=== PATIENT | male | born 1965 | race African-American/Black ===

== ENCOUNTER 2022-09-03 15:58 | Inpatient (IN) | payer OTHER, SELFPAY ==
[2022-09-03] VITALS (44 sets, daily range): BP systolic 80–120; BP diastolic 45–85; PULSE 60–96; RESP 14–44; TEMP 36.4–37.1; O2SAT 86–100
--- NOTE | ~2022-09-03 | CT_ITS ---
EXAMINATION: CT abdomen pelvis w con DATE: 09/03/2022 17:34 INDICATION: Abdominal pain TECHNIQUE: Computed tomography (CT) of the abdomen and pelvis was performed with 100 mL Omnipaque-350 intravenous contrast. Automated exposure control and iterative reconstruction technique were employe d. The dose-length product was 1296.59 mGy-cm. COMPARISON: None FINDINGS: Moderate-sized bilateral posterior layering bilateral pleural effusions with dependent compressive at electasis in the bilateral lower lobes and lingula. There are patchy airspace opacities suspicious fo r aspiration or pneumonia in the noncollapsed portions of the left lower lobe and lingula. Heart size is normal. Atherosclerotic coronary artery calcific lesion. No pericardial effusion. Dual-lead cardi ac pacemaker with lead tips in the right atrium and right ventricle. Aortic valve calcific location. Visualized thoracic aorta is normal in caliber with no dissection. Heterogeneous enhancement of the liver without mag appearance suggesting hepatic venous congestion. H epatic calcific lesions consistent with old granulomatous disease. Gallbladder, spleen, pancreas and bilateral adrenal glands are normal. Multiple bilateral low-attenuation renal cysts the largest on th e left measuring 3 cm . 5 similar ball of stool at the rectum. No evident pleural thickening or obstr uction. Normal appendix. Bladder is normal. The uterus is not identified and has likely been surgical ly resected. Small amount of ascites throughout the abdomen and pelvis. Extensive body wall, mediasti nal, mesenteric and retroperitoneal edema. Mild scattered degenerative skeletal changes in the spine and pelvis. IMPRESSION: 1. Anasarca with extensive soft tissue edema throughout the chest, abdomen, pelvis and upper thighs, moderate-sized bilateral pleural effusions and small amount of ascites. 2. Patchy airspace opacity in the left lower lobe and lingula consistent with pneumonia. Reviewed, dictated and finalized at location A. [facility] MINISTER IMPRESSION: 1. Anasarca with extensive soft tissue edema throughout the chest, abdomen, pel vis and upper thighs, moderate-sized bilateral pleural effusions and small amou nt of ascites. 2. Patchy airspace opacity in the left lower lobe and lingula consistent with p neumonia.
--- NOTE | 2022-09-03 16:01 | ECG_ITS ---
Measurements Intervals [place] Rate: 71 P: 162 SC: 255 QRS: 238 QRSD: 84 T: 92 QT: 263 QTc: 286 Interpretive Statements NSR/POSSIBLE ELECTRONIC ATRIAL AND VENTRICULAR PACEMAKER LOW QRS VOLTAGE [QRS DEFLECTION < 0.5/1.0 mV IN LIMB/CHEST LEADS] POSSIBLE OLD INFERIOR AND ANTEROLATERAL TX'S VERSUS VENTRICULAR PACING NO PREVIOUS ECG AVAILABLE FOR COMPARISON Electronically Signed On 09-04-2022 8:36:38 [employer]ATIONIST by Vanessa Murphy M.D.
[2022-09-03 16:54] LABS: Hematocrit 34.8 % (42.0-52.0); Hemoglobin 10.7 g/dL (14.0-18.0); Mean Corpuscular HGB Conc 30.7 g/dl (32-36); Mean Corpuscular Hemoglobin 24.9 pg (26-34); Mean Corpuscular Volume 81.1 fl (80-100); Mean Platelet Volume 8.9 fl (7.4-10.4); Platelet Count Result 356 k/mm3 (150-375); Red Blood Count 4.29 M/mm3 (4.6-6.20); Red Cell Distribution Width 19.5 % (11.5-14.5); White Blood Count 17.4 K/mm3 (4.5-10.0)
[2022-09-03 17:06] LABS: INR 1.8; Prothrombin Time 20.5 Seconds (11.1-14.7)
[2022-09-03 17:16] LABS: Alanine Aminotransferase 18 U/L (6-50); Albumin Level 2.3 g/dL (3.5-5.1); Alkaline Phosphatase 90 U/L (38-126); Anion Gap 3 mmol/L (8-16); Aspartate Amino Transferase 26 U/L (17-59); Bilirubin,Total 0.5 mg/dL (0.2-1.3); Blood Urea Nitrogen 46 mg/dL (9-20); Calcium 7.5 mg/dL (8.4-10.2); Carbon Dioxide 28 mmol/L (22-30); Chloride 104 mmol/L (98-107); Estimated CRCL calculation 47 ml/min; Estimated Glomerular Filt Rate 51; Glucose 87 mg/dL (65-110); Lipase 66 U/L (23-300); Potassium 4.3 mmol/L (3.4-5.0); Sodium 135 mmol/L (137-145)
[2022-09-03 17:17] LABS: Lactic Acid Reflex 1.8 mmol/L (0.7-2.0)
[2022-09-03] MEDS: SODIUM CHLORIDE 0.9% IV 1,000 ML 75 ML IV CONT (17:18)
[2022-09-03 17:31] LABS: Band Neutrophils Percent 6 % (0-6); Lymphocytes Absolute Manual 0.52 K/mm3 (1.1-4.5); Monocytes Absolute Manual 1.04 K/mm3 (0.1-0.90); Monocytes Percent Manual 6 % (3-9); Neutrophils Absolute Manual 15.83 K/mm3 (1.3-6.7); Neutrophils Percent Manual 85 % (46-73); Total Cells Counted 100
[2022-09-03 17:32] LABS: Hypochromasia 1+ (NORMAL); Platelet Estimate Adequate (Adequate); Schistocytes None Seen (NORMAL)
[2022-09-03 17:33] LABS: Anisocytosis 3+ (NORMAL); Troponin I 0.012 ng/mL (0.000-0.034)
--- NOTE | 2022-09-03 17:52 | PC.NURSE ---
Pt had a sudden onset of SOB. Pt wanting to sit up and pt is very anxious. Pt O2 is 98% on room air at this time, lung sounds are very crackled. Pt repositioned to sit up.
--- NOTE | 2022-09-03 19:10 | ED.GENADULT ---
HPI - General Adult General Chief complaint: Nausea/Vomiting/Diarrhea Stated complaint: vomiting blood Time Seen by Provider: 09/03/22 16:01 Source: patient and family Mode of arrival: EMS Limitations: clinical condition History of Present Illness HPI narrative: 57-year-old with a history of CHF, type 2 diabetes, CKD paroxysmal atrial fibrillation on apixaban, alcoholic cirrhosis, CVA, sick sinus syndrome with s/p pacemaker, hemiplegia on the right, esophageal varices without bleeding, hypertension was brought in from the alf with complaints of vomiting blood earlier this morning. Patient states that he threw up but required a couple of blood. He denies any abdominal pain or chest pain. Patient states that he has never thrown up blood in the past. Onset (ago): day(s) (1) Relieving factors: none Exacerbating factors: none Associated symptoms: denies other symptoms Treatments prior to arrival: none Related Data Allergies Allergy/AdvReac Type Severity Reaction Status Date / Time No Known Allergies Allergy Verified 09/03/22 17:04 Review of Systems Review of Systems: All systems reviewed & are unremarkable except as noted in HPI and below Constitutional: Constitutional: Reports no additional constitutional complaints Eyes: Eyes: Reports no additional eye complaints ENT: Reports system reviewed and no additional complaints, except as documented Cardiovascular: Cardiovascular: Reports no additional cardiovascular complaints Respiratory: Respiratory: Reports no additional respiratory complaints Gastrointestinal: Gastrointestinal: Reports as per HPI Musculoskeletal: Musculoskeletal: Reports no additional musculoskeletal complaints Neurologic: Reports system reviewed and no additional complaints, except as documented Exam Narrative: GENERAL: Well-appearing, well-nourished, and in no acute distress. Has expressive aphasia HEAD: Normocephalic, atraumatic. EYES: PERRLA and EOMI. NECK: Supple. CHEST: Clear to auscultation. No respiratory distress. HEART: Regular rate and rhythm. No murmur heard. Normal peripheral pulses. ABDOMEN: Soft, nontender, nondistended, normal active bowel sounds. EXTREMITIES: Normal range of motion. No edema. SKIN: Warm, dry, no rash. NEURO: No focal deficits. Alert and oriented x3. Has residual hemiplegia on the right PSYCH: Normal mood and affect. Course Course Emergency Course: 57-year-old with a history of cirrhosis liver known history of esophageal varices without bleeding now presents with history of vomiting blood earlier at the alf since upon arrival to the ER patient had no further episodes. He is hemodynamically stable , his labs and CT of the abdomen were unremarkable discussed with Dr. Barrera will consulted patient. Vital Signs Vital signs: Vital Signs Temperature 37.1 C 09/03/22 15:58 Pulse Rate 74 09/03/22 15:58 Respiratory Rate 14 09/03/22 15:58 Blood Pressure 108/62 09/03/22 15:58 Pulse Oximetry 99 09/03/22 15:58 Oxygen Delivery Room Air 09/03/22 15:58 Temperature 37.1 C 09/03/22 15:58 Pulse Rate 60 09/03/22 19:07 Respiratory Rate 30 H 09/03/22 19:07 Blood Pressure 110/59 L 09/03/22 19:07 Pulse Oximetry 100 09/03/22 19:07 Oxygen Delivery Nasal Cannula 09/03/22 17:56 Oxygen Flow Rate 2 09/03/22 17:56 Medical Decision Making MDM Narrative Medical decision making narrative: 57-year-old with multiple medical problems, presents with history of bright red blood emesis earlier this morning however upon arrival patient is asymptomatic has no pain. His blood pressure and lab work look unremarkable we will admit him to the hospital for observation consult GI. Vital Signs Vital Signs: Vital Signs Temperature 37.1 C 09/03/22 15:58 Pulse Rate 74 09/03/22 15:58 Respiratory Rate 14 09/03/22 15:58 Blood Pressure 108/62 09/03/22 15:58 Pulse Oximetry 99 09/03/22 15:58 Oxygen Delivery Room Air
[2022-09-03 19:35] LABS: Hematocrit 33.8 % (42.0-52.0); Hemoglobin 10.3 g/dL (14.0-18.0)
[2022-09-03 19:56] LABS: Influenza A QL RT-PCR Negative (Negative); Influenza B QL RT-PCR Negative (Negative); SARS-CoV-2 RNA PCR Negative
--- NOTE | 2022-09-03 21:52 | PM.IMHP ---
H&P: HPI History of Present Illness Date/Time: 09/03/22 21:52 Chief Complaint: Hematemesis Narrative: This is a 57-year-old male with past medical history significant for hepatic cirrhosis, congestive heart failure, hypertension, stroke, paroxysmal atrial fibrillation, right hemiplegia, aphasia. Patient is a [facility] resident was brought to the emergency room for evaluation due to episode of hematemesis. Patient is unable to give any history due to his aphasia. Preliminary workup was significant for CT of abdomen and pelvis was reported as: FINDINGS: Moderate-sized bilateral posterior layering bilateral pleural effusions with dependent compressive atelectasis in the bilateral lower lobes and lingula. There are patchy airspace opacities suspicious for aspiration or pneumonia in the noncollapsed portions of the left lower lobe and lingula. Heart size is normal. Atherosclerotic coronary artery calcific lesion. No pericardial effusion. Dual-lead cardiac pacemaker with lead tips in the right atrium and right ventricle. Aortic valve calcific location. Visualized thoracic aorta is normal in caliber with no dissection. Heterogeneous enhancement of the liver without mag appearance suggesting hepatic venous congestion. Hepatic calcific lesions consistent with old granulomatous disease. Gallbladder, spleen, pancreas and bilateral adrenal glands are normal. Multiple bilateral low-attenuation renal cysts the largest on the left measuring 3 cm . 5 similar ball of stool at the rectum. No evident pleural thickening or obstruction. Normal appendix. Bladder is normal. The uterus is not identified and has likely been surgically resected. Small amount of ascites throughout the abdomen and pelvis. Extensive body wall, mediastinal, mesenteric and retroperitoneal edema. Mild scattered degenerative skeletal changes in the spine and pelvis. IMPRESSION: 1. Anasarca with extensive soft tissue edema throughout the chest, abdomen, pelvis and upper thighs, moderate-sized bilateral pleural effusions and small amount of ascites. 2. Patchy airspace opacity in the left lower lobe and lingula consistent with pneumonia. Review of Systems Review of Systems: ROS unobtainable: Yes unobtainable due to medical condition (Aphasia) [facility] Past Medical History Medical History Acute upper GI bleed Aphasia CHF (congestive heart failure) Cirrhosis of liver Esophageal varices History of stroke HTN (hypertension) with goal to be determined Hyponatremia Pacemaker Paroxysmal A-fib Pneumonia Right hemiplegia Social History Social History Smoking status: Unknown if ever smoked Alcohol intake: former Substance use: never Lack of Transportation: No Lack of Food: Never True Current Housing: I Have Housing Concerned About Future Housing: No Difficulty Paying Gas/Electric Bills: No Difficulty Paying for Meds: YES Currently Unemployed: No Education: High School Diploma/GED Difficulty w/ Childcare or Family Care: No Spiritual care concerns: No Meds Home Medications and Allergies Home Medications Medication Instructions Recorded Confirmed Type apixaban 5 mg tablet (Eliquis) 5 mg PO BID 09/04/22 09/04/22 History ascorbic acid (vitamin C) 500 mg 500 mg PO BID 09/04/22 09/04/22 History tablet aspirin 81 mg tablet,delayed 81 mg PO DAILY 09/04/22 09/04/22 History release bisacodyl 10 mg rectal suppository 10 mg RECTAL DAILY PRN Constipation 09/04/22 09/04/22 History calcium alginate 4 X 4 bandage 09/04/22 09/04/22 History collagen (bovine) 100 % topical 1 applic topical QMWF 09/04/22 09/04/22 History powder ferrous sulfate 325 mg (65 mg 325 mg PO DAILY 09/04/22 09/04/22 History iron) tablet folic acid 400 mcg tablet 400 mcg PO DAILY 09/04/22 09/04/22 History furosemide 40 mg tablet 40 mg PO DAILY 09/04/22 09/04/22 History magnesium
[2022-09-04] VITALS (19 sets, daily range): BP systolic 85–139; BP diastolic 44–94; PULSE 59–101; RESP 16–30; TEMP 36.1–36.9; O2SAT 95–100; BMI 28.0
--- NOTE | 2022-09-04 00:17 | ADMGEN ---
This patient, Juan Carlos Arreaga, was admitted to IMU Room 205-02 at 2330. Patient/family oriented to hospital policies and general routines including ID bracelet, bed and alarms, visiting hours, pain management, procedures, bathroom and other care routines, personal items, smoking policy, room service/diet, and visiting hours. Information on how to activate the Rapid Response Team has been discussed. Patient/Family are encouraged to report perceived risks to care and to ask questions if they do not understand what they are told or what they should do.
--- NOTE | 2022-09-04 00:18 | PC.NURSE ---
Name on chart paperwork and armband listed as STEVE Arreaga. When asked patient he states name is DARWIN. custodial paper listed as DARWIN Arreaga. Admitting made aware of incorrect name spelling and new stickers placed in chart and new armband placed on patient.
--- NOTE | 2022-09-04 00:26 | WPDANESEPP ---
Anes - Eval Pre Procedure Procedure: EGD Date/Time: 09/04/22 00:26 Surgeon: Bruce Pre Op Diagnosis: Upper GI bleed, cirrhosis of the liver Patient Data Age: 57 Gender: M Height: 1.7 m Weight: 81.4 kg Last Vital Signs Temp 97.6 F 09/03/22 23:30 Pulse 76 09/03/22 23:30 Resp 18 09/03/22 23:30 BP 120/54 L 09/03/22 23:30 Pulse Ox 98 09/03/22 23:30 O2 Del Method Nasal Cannula 09/03/22 17:56 O2 Flow Rate 2 09/03/22 17:56 Allergies Allergy/AdvReac Type Severity Reaction Status Date / Time No Known Allergies Allergy Verified 09/03/22 17:04 Laboratory Tests 09/03/22 09/03/22 09/03/22 16:47 16:47 16:47 WBC 17.4 K/mm3 H K/mm3 (4.5-10.0) RBC 4.29 M/mm3 L M/mm3 (4.6-6.20) Hgb 10.7 g/dL L g/dL (14.0-18.0) Hct 34.8 % L % (42.0-52.0) MCV 81.1 fl fl (80-100) MCH 24.9 pg L pg (26-34) MCHC 30.7 g/dl L g/dl (32-36) RDW 19.5 % H % (11.5-14.5) Plt Count 356 k/mm3 k/mm3 (150-375) MPV 8.9 fl fl (7.4-10.4) Immature Gran % (Auto) Not Reportable Neut % (Auto) Not Reportable Lymph % (Auto) Not Reportable [place] % (Auto) Not Reportable Eos % (Auto) Not Reportable Baso % (Auto) Not Reportable Lymph # (Auto) Not Reportable [place] # (Auto) Not Reportable Eos # (Auto) Not Reportable Baso # (Auto) Not Reportable Abs Immat Gran (auto) Not Reportable Absolute Neuts (auto) Not Reportable Absolute Nucleated RBC Not Reportable Total Counted 100 Neutrophils % (Manual) 85 % H % (46-73) Band Neutrophils % 6 % % (0-6) Lymphocytes % (Manual) 3.0 % L % (18-44) Monocytes % (Manual) 6 % % (3-9) Nucleated RBC % Not Reportable Abs Neuts (Manual) 15.83 K/mm3 H K/mm3 (1.3-6.7) Abs Lymphs (Manual) 0.52 K/mm3 L K/mm3 (1.1-4.5) Abs Monocytes (Manual) 1.04 K/mm3 H K/mm3 (0.1-0.90) Platelet Estimate Adequate (Adequate) Hypochromasia 1+ (NORMAL) Anisocytosis 3+ (NORMAL) Schistocytes None seen (NORMAL) PT 20.5 Seconds H Seconds (11.1-14.7) INR 1.8 Sodium 135 mmol/L L mmol/L (137-145) Potassium 4.3 mmol/L mmol/L (3.4-5.0) Chloride 104 mmol/L mmol/L (98-107) Carbon Dioxide 28 mmol/L mmol/L (22-30) Anion Gap 3 mmol/L L mmol/L (8-16) BUN 46 mg/dL H mg/dL (9-20) Creatinine 1.70 mg/dL H mg/dL (0.7-1.3) Estim Creat Clear Calc 47 ml/min ml/min Estimated GFR 51 L (59 - ) Glucose 87 mg/dL mg/dL (65-110) Lactic Acid Calcium 7.5 mg/dL L mg/dL (8.4-10.2) Total Bilirubin 0.5 mg/dL mg/dL (0.2-1.3) AST 26 U/L U/L (17-59) ALT 18 U/L U/L (6-50) Alkaline Phosphatase 90 U/L U/L (38-126) Troponin I 0.012 ng/mL ng/mL (0.000-0.034) Total Protein 4.0 g/dL L g/dL (6.3-8.2) Albumin 2.3 g/dL L g/dL (3.5-5.1) Lipase 66 U/L U/L (23-300) Influenza A (RT-PCR) Influenza B (RT-PCR) SARS-CoV-2 RNA (RT-PCR) 09/03/22 09/03/22 09/03/22 16:47 19:18 19:31 WBC RBC Hgb 10.3 g/dL L g/dL (14.0-18.0) Hct 33.8 % L % (42.0-52.0) MCV MCH MCHC RDW Plt Count MPV Immature Gran % (Auto) Neut % (Auto) Lymph % (Auto) [place] % (Auto) Eos % (Auto) Baso % (Auto) Lymph # (Auto) [place] # (Auto) Eos # (Auto) Baso # (Auto) Abs Immat
[2022-09-04 01:30] LABS: Hematocrit 34.3 % (42.0-52.0); Hemoglobin 10.5 g/dL (14.0-18.0)
[2022-09-04 05:52] LABS: Appearance Urine Clear (Clear); Bilirubin Urine Negative (Negative); Blood Urine Negative (Negative); Color Urine Yellow (Yellow); Glucose Urine UA Negative (Negative); Ketones Urine Negative (Negative); Leukocyte Esterase Ur Negative LEU/UL (Negative); Nitrate Urine Negative (Negative); Protein Urine Negative (Negative); Urobilinogen Urine 0.2 mg/dL (<2.0)
[2022-09-04 06:02] LABS: Mucus Urine Rare /lpf; WBC Urine 0-3 /hpf
[2022-09-04 06:44] LABS: Add Urine Microscopic? NO
[2022-09-04] MEDS: FUROSEMIDE INJ 40 MG/4 ML VIAL IV PUSH (06:46)
[2022-09-04] MEDS: SODIUM CHLORIDE 0.9% IV 1,000 ML 75 ML IV CONT (06:46)
--- NOTE | 2022-09-04 07:40 | PM.IMPN ---
Progress Note: A&P Assessment and Plan (1) Pneumonia: Code(s): J18.9 - Pneumonia, unspecified organism Status: Acute Assessment and Plan: LLL and lingula pneumonia noted on chest x-ray. +cough and WBC 17.4 on admission. He was treated with Azithromycin & Cefepime IV. Continue Azithromycin and Cefepime. Will stop Vancomycin as MRSA pneumonia risk appears low. Monitor respiratory status. Trend CBC and procalcitonin (2) Acute upper GI bleed: Code(s): K92.2 - Gastrointestinal hemorrhage, unspecified Status: Acute Assessment and Plan: Hgb 10 and stable. Continue iron supplement and vitamin C Hold apixabn and aspirin. EGD today negative for bleeding or esophageal varices. GI following. (3) Cirrhosis of liver: Qualifiers: Ascites presence: without ascites Hepatic cirrhosis type: alcoholic cirrhosis Qualified Code(s): K70.30 - Alcoholic cirrhosis of liver without ascites Code(s): K74.60 - Unspecified cirrhosis of liver Status: Acute Assessment and Plan: +lymphedema BLE to abdomen. BP soft. stop IV fluids. Hold lasix for now. Reassess in am if BP improves. It does not appear the patient is on spironolactone at this time, however, he might benefit from this. (4) History of stroke: Code(s): Z86.73 - Personal history of transient ischemic attack (TIA), and cerebral infarction without residual deficits Status: Chronic Assessment and Plan: with h/o right sided weakness and expressive aphasia. Monitor BP. continued on statin. Holding aspirin for above. (5) CHF (congestive heart failure): Qualifiers: Heart failure type: combined systolic and diastolic Heart failure chronicity: chronic Qualified Code(s): I50.42 - Chronic combined systolic (congestive) and diastolic (congestive) heart failure Code(s): I50.9 - Heart failure, unspecified Status: Chronic Assessment and Plan: Does not appear to be in acute exacerbation. Combined systolic and diastolic CHF per history. Resume lasix in am if BP tolerates. Plan CODE STATUS: FULL CODE Discharge disposition: return to SNF when medically stable. Time Spent With Patient Time: 30 minutes time spent reviewing medical chart, lab work, imaging, patient assessment, and developing treatment plan. Subjective Date/time seen: 09/04/22 07:40 He just returned to the floor from EGD. He has expressive aphasia and difficulty communicating. He reports BM today that the nursing staff reports was green. No nausea or emesis. He denies chest pain or SOB. Review of Systems Review of Systems: All systems reviewed & are unremarkable except as noted in HPI and below Exam Narrative: General: No acute distress.? chronically ill appearing older adult male. Sitting at the side of the bed. Mental Status/Psych: Alert. Orientation at baseline. Expressive aphasia present. clear speech. Neutral mood and affect. Pleasant and cooperative. right-sided weakness. Skin: warm, dry and intact without rashes or lesions. No open wounds. Good turgor.? HEENT: Normocephalic. Conjunctivae are clear. Sclera is non-icteric. EOM intact. PERRL. Grossly normal hearing. Oral mucosa pink and moist. Tongue midline. Oropharynx within normal limits. Neck: Supple. No JVD. Heart: S1 and S2 regular rate and rhythm. No murmurs, gallops, or rubs auscultated. AV paced and captured. Chest: Respirations even and unlabored. Lung sounds diminished LLL, clear to auscultation JOHN and right cardona. No wheezes, rhonchi, or rales. Abdomen: Soft, round and non-tender to palpation.? Bowel sounds present in all 4 quadrants. Extremities:? Grossly normal ROM all extremities. +1-2 edema BLE to abdomen. Radial and dorsalis pedis pulses +2 bilaterally. Objective Data Vital Signs Vital Signs: Vital Signs - 24 hr 09/03/22 15:58 09/03/22 16:03 09/03/22 17:00 Temperature 98.8 F Pulse Rate 74 87 Respirat
[2022-09-04] MEDS: LACTATED RINGERS 1,000 ML 150 ML IV CONT (07:50)
--- NOTE | 2022-09-04 07:52 | P.PNAN_ITS ---
Anes - Eval Final PreProcedure Day of Procedure 09/04/22 07:52 Patient weight: overweight Heart: regular rate and rhythm (distant) Lungs: decreased breath sounds Neurological: hemiparesis, dysarthria and other (alert) Last oral intake: >/= 8 hours ASA classification: IV Emergent: no Anesthetic plan: proceed Anesthesia type and monitoring: general GIVS and standard monitoring Results Review: All pre-operative results and documents have been reviewed as part of the pre- operative evaluation. Informed Consent: The patient's anesthetic plan and its attendant risks and benefits were discussed with the patient/family/POA. Questions were solicited and answers provided to the satisfaction of the patient/family/POA.
--- NOTE | 2022-09-04 07:56 | WPDGICN ---
Assessment and Plan Assessment and plan (1) Acute upper GI bleed: Code(s): K92.2 - Gastrointestinal hemorrhage, unspecified Status: Acute Assessment and Plan: Patient with history of hematemesis. With his history of cirrhosis concern over soft gel varices or ulcer disease. Plan for EGD this morning to assess more thoroughly. Hemoglobin appears stable overnight. (2) Cirrhosis of liver: Qualifiers: Ascites presence: without ascites Hepatic cirrhosis type: alcoholic cirrhosis Qualified Code(s): K70.30 - Alcoholic cirrhosis of liver without ascites Code(s): K74.60 - Unspecified cirrhosis of liver Status: Acute Assessment and Plan: Patient reported to have cirrhosis of liver possible esophageal varices. Liver function tests currently are normal. Imaging studies revealed passive congestion of the liver from his congestive heart failure. Plan for supportive care at present. (3) CHF (congestive heart failure): Code(s): I50.9 - Heart failure, unspecified Status: Acute Assessment and Plan: Patient apparently also has atrial fibrillation for which she is anticoagulated. Anticoagulation will need to be held until we are certain it is safe to resume. (4) History of stroke: Code(s): Z86.73 - Personal history of transient ischemic attack (TIA), and cerebral infarction without residual deficits Status: Acute Assessment and Plan: Patient has a history of a CVA with residual right-sided weakness. (5) Aphasia: Code(s): R47.01 - Aphasia Status: Acute Assessment and Plan: Patient has significant dysarthria a related to his stroke. GI Consult Note Consult date/time: 09/04/22 07:56 Reason for consult: Hematemesis HPI: Juan Carlos Arreaga is a 57 year old male with a history of atrial fibrillation on Eliquis, congestive heart failure, cirrhosis of the liver, previous CVA with right hemiparesis. Patient presented to the emergency room because of history of hematemesis. He has significant dysarthria and history is difficult to obtain. ER physician reports patient is known to have had esophageal varices in the past. Patient's hemoglobin was stable because of hematemesis patient was admitted for further evaluation. Review of Systems Review of Systems: ROS unobtainable: Yes unobtainable due to medical condition PMFSH Past Medical History Medical History (Updated 09/04/22 @ 07:45 by Yasemin Middleton APRN) Acute upper GI bleed Aphasia CHF (congestive heart failure) Cirrhosis of liver Esophageal varices History of stroke HTN (hypertension) with goal to be determined Hyponatremia Pacemaker Paroxysmal A-fib Pneumonia Right hemiplegia Social History Social History Smoking status: Unknown if ever smoked Alcohol intake: former Substance use: never Lack of Transportation: No Lack of Food: Never True Current Housing: I Have Housing Concerned About Future Housing: No Difficulty Paying Gas/Electric Bills: No Difficulty Paying for Meds: YES Currently Unemployed: No Education: High School Diploma/GED Difficulty w/ Childcare or Family Care: No Spiritual care concerns: No Meds Home Medications and Allergies Home Medications Medication Instructions Recorded Confirmed Type apixaban 5 mg tablet (Eliquis) 5 mg PO BID 09/04/22 09/04/22 History ascorbic acid (vitamin C) 500 mg 500 mg PO BID 09/04/22 09/04/22 History tablet aspirin 81 mg tablet,delayed 81 mg PO DAILY 09/04/22 09/04/22 History release bisacodyl 10 mg rectal suppository 10 mg RECTAL DAILY PRN Constipation 09/04/22 09/04/22 History calcium alginate 4 X 4 bandage 09/04/22 09/04/22 History collagen (bovine) 100 % topical 1 applic topical QMWF 09/04/22 09/04/22 History powder ferrous sulfate 325 mg (65 mg 325 mg PO DAILY 09/04/22 09/04/22 History iron) tablet folic acid 400 mcg t
[2022-09-04 08:10] LABS: Glucose Point of Care 83 mg/dl (65-105)
--- NOTE | 2022-09-04 09:08 | SUR.PHASEII ---
Spoke with Dr. Barrera about transfer orders not being in. Stated it was okay to take him up to the floor and he will put them in within 30 min.
[2022-09-04 10:01] LABS: Hematocrit 33.9 % (42.0-52.0); Hemoglobin 10.2 g/dL (14.0-18.0)
[2022-09-04] MEDS: FERROUS SULFATE 324 MG TABLET PO (10:11)
[2022-09-04] MEDS: ASCORBIC ACID 500 MG TABLET PO ×2 (10:11→18:09)
[2022-09-04] MEDS: FOLIC ACID 0.4 MG TABLET PO (10:12)
[2022-09-04] MEDS: METOPROLOL SUCCINATE EXT REL 25 MG TABCR PO (10:15)
[2022-09-04] MEDS: SODIUM BICARBONATE TAB 650 MG TABLET PO ×2 (10:18→18:09)
[2022-09-04] MEDS: THERAPEUTIC MULTIVITAMINS/MINERALS TAB (*BKC) 1 TABLET PO (10:18)
[2022-09-04] MEDS: ROSUVASTATIN 10 MG TABLET 40 MG PO (10:18)
[2022-09-04] MEDS: TAMSULOSIN HCL 0.4 MG CAPSULE PO (10:19)
[2022-09-04 10:42] LABS: Anion Gap 7 mmol/L (8-16); Blood Urea Nitrogen 50 mg/dL (9-20); Calcium 7.6 mg/dL (8.4-10.2); Carbon Dioxide 24 mmol/L (22-30); Chloride 107 mmol/L (98-107); Estimated CRCL calculation 41 ml/min; Estimated Glomerular Filt Rate 51; Glucose 75 mg/dL (65-110); Potassium 4.2 mmol/L (3.4-5.0); Sodium 138 mmol/L (137-145)
--- NOTE | 2022-09-04 22:05 | PC.NURSE ---
This patient, Juan Carlos Arreaga, was received from [U 205-2] on 09/04/22 at 2205. Patient/family oriented to unit policies and routines.
--- NOTE | 2022-09-04 22:06 | PC.NURSE ---
This patient, Juan Carlos Arreaga, was transferred to [facility] on 09/04/22 at 2141. Personal belongings sent with patient. Report given to ISRAEL Marcum. Appropriate documentation sent with patient.
[2022-09-05] VITALS (11 sets, daily range): BP systolic 102–139; BP diastolic 45–66; PULSE 58–90; RESP 16–19; TEMP 36.4–36.7; O2SAT 94–100
[2022-09-05 05:43] LABS: Hematocrit 34.3 % (42.0-52.0); Mean Corpuscular HGB Conc 29.2 g/dl (32-36); Mean Corpuscular Hemoglobin 24.4 pg (26-34); Mean Corpuscular Volume 83.7 fl (80-100); Platelet Count Result 333 k/mm3 (150-375); Red Cell Distribution Width 19.3 % (11.5-14.5); White Blood Count 12.7 K/mm3 (4.5-10.0)
[2022-09-05 05:44] LABS: Basophils Absolute Auto 0.1 K/mm3 (0.0-0.1); Basophils Percent Auto 0.5 % (0.2-1.2); Eosinophils Absolute Auto 0.2 K/mm3 (0-0.3); Eosinophils Percent Auto 1.6 % (0-4.4); Immature Granulocyte Absolute 0.04 K/mm3 (0.00-0.031); Immature Granulocyte Percent A 0.3 % (0-0.5); Lymphocytes Absolute Auto 0.53 K/mm3 (0.9-3.2); Lymphocytes Percent Auto 4.2 % (18.3-44.2); Monocytes Absolute Auto 0.9 K/mm3 (0.1-0.6); Monocytes Percent Auto 7.3 % (2.6-8.5); Neutrophils Absolute Auto 10.9 K/mm3 (1.3-6.7); Neutrophils Percent Auto 86.1 % (45.5-73.1)
[2022-09-05 06:05] LABS: Alanine Aminotransferase 16 U/L (6-50); Albumin Level 1.9 g/dL (3.5-5.1); Alkaline Phosphatase 74 U/L (38-126); Anion Gap 4 mmol/L (8-16); Aspartate Amino Transferase 21 U/L (17-59); Bilirubin,Total 0.6 mg/dL (0.2-1.3); Blood Urea Nitrogen 53 mg/dL (9-20); Calcium 7.4 mg/dL (8.4-10.2); Carbon Dioxide 23 mmol/L (22-30); Chloride 103 mmol/L (98-107); Estimated CRCL calculation 38 ml/min; Estimated Glomerular Filt Rate 47; Glucose 82 mg/dL (65-110); Potassium 4.4 mmol/L (3.4-5.0); Sodium 130 mmol/L (137-145)
[2022-09-05 06:21] LABS: Procalcitonin 1.9 ng/mL
[2022-09-05 06:53] LABS: Anisocytosis 2+ (NORMAL); Hypochromasia 1+ (NORMAL); Platelet Estimate Adequate (Adequate)
[2022-09-05 06:54] LABS: Poikilocytosis 1+ (NORMAL); Schistocytes Rare (NORMAL)
--- NOTE | 2022-09-05 10:28 | PM.IMPN ---
Progress Note: A&P Assessment and Plan (1) Pneumonia: Code(s): J18.9 - Pneumonia, unspecified organism Status: Acute Assessment and Plan: LLL and lingula pneumonia noted on chest x-ray. +cough and WBC 17.4 on admission. He was treated with Vancomycin, Azithromycin & Cefepime IV on admission. Continue Azithromycin and Cefepime. Will stop Vancomycin as MRSA pneumonia risk appears low. Monitor respiratory status. Trend CBC and procalcitonin (2) Acute upper GI bleed: Code(s): K92.2 - Gastrointestinal hemorrhage, unspecified Status: Ruled-out Assessment and Plan: Hgb 10 and stable. Continue iron supplement and vitamin C EGD negative for bleeding or esophageal varices. Resume home apixaban and aspirin (3) Cirrhosis of liver: Qualifiers: Ascites presence: without ascites Hepatic cirrhosis type: alcoholic cirrhosis Qualified Code(s): K70.30 - Alcoholic cirrhosis of liver without ascites Code(s): K74.60 - Unspecified cirrhosis of liver Status: Acute Assessment and Plan: +lymphedema BLE to abdomen. BP soft. stopped IV fluids. Hold lasix for now. BUN/creatinine elevated and unknown baseline. BP 102/45 Albumin 1.6. give 25% albumin 50 grams x1. Resume lasix if BP is improved. It does not appear the patient is on spironolactone at this time, however, he might benefit from this. (4) History of stroke: Code(s): Z86.73 - Personal history of transient ischemic attack (TIA), and cerebral infarction without residual deficits Status: Chronic Assessment and Plan: with h/o right sided weakness and expressive aphasia. Monitor BP. continued on statin. Holding aspirin for above. (5) CHF (congestive heart failure): Qualifiers: Heart failure chronicity: chronic Heart failure type: combined systolic and diastolic Qualified Code(s): I50.42 - Chronic combined systolic (congestive) and diastolic (congestive) heart failure Code(s): I50.9 - Heart failure, unspecified Status: Chronic Assessment and Plan: Does not appear to be in acute exacerbation. Combined systolic and diastolic CHF per history. Resume lasix in am if BP tolerates. Plan CODE STATUS: FULL CODE Discharge disposition: return to SNF when medically stable. Time Spent With Patient Time: 25 minutes Subjective Date/time seen: 09/05/22 10:28 Interval history: Patient is a 57-year-old male with hepatic cirrhosis, chronic combined congestive heart failure, hypertension, paroxysmal atrial fibrillation on Eliquis, prior strokes right hemiplegia and aphasia, who was brought to the emergency room for evaluation of hematemesis.?Chest xray suggests LLL and lingula pneumonia. He was admitted for GI evaluation and IV antibiotics. He reports frustration with still being in the hospital. He states his lower extremity edema is unchanged. He denies respiratory complaints, but is noted to have increased work of breathing with position changes as well as rust-colored sputum. Hemoglobin stable. Review of Systems Review of Systems: All systems reviewed & are unremarkable except as noted in HPI and below Exam Narrative: General: No acute distress.? chronically ill appearing older adult male. Sitting at the side of the bed. Mental Status/Psych: Alert. Orientation at baseline. Expressive aphasia present. clear speech. Neutral mood and affect. Pleasant and cooperative. right-sided weakness. Skin: warm, dry and intact without rashes or lesions. No open wounds. Good turgor.? HEENT: Normocephalic. Conjunctivae are clear. Sclera is non-icteric. EOM intact. PERRL. Grossly normal hearing. Oral mucosa pink and moist. Tongue midline. Oropharynx within normal limits. Neck: Supple. No JVD. Heart: S1 and S2 regular rate and rhythm. No murmurs, gallops, or rubs auscultated. AV paced and captured. Chest: Respirations even and unlabored. Lung sounds diminished LLL with
[2022-09-05] MEDS: ASCORBIC ACID 500 MG TABLET PO ×2 (10:34→17:35)
[2022-09-05] MEDS: THERAPEUTIC MULTIVITAMINS/MINERALS TAB (*BKC) 1 TABLET PO (10:34)
[2022-09-05] MEDS: FERROUS SULFATE 324 MG TABLET PO (10:34)
[2022-09-05] MEDS: FOLIC ACID 0.4 MG TABLET PO (10:34)
[2022-09-05] MEDS: ROSUVASTATIN 10 MG TABLET 40 MG PO (10:34)
[2022-09-05] MEDS: SODIUM BICARBONATE TAB 650 MG TABLET PO ×2 (10:34→17:35)
[2022-09-05] MEDS: TAMSULOSIN HCL 0.4 MG CAPSULE PO (10:34)
[2022-09-05] MEDS: ALBUMIN HUMAN 25% 25 GM/100 ML 200 ML IVPB (13:48)
--- NOTE | 2022-09-05 14:11 | PC.NURSE ---
Patient's IV tegaderm was half way hanging off. RN assessed site and determined it is not useable as IV catheter is completed out of access site. Patient very frustrated, crying, yelling, cussing. RN called superintendent warehouse to see if he could regain assess as patient does not want to be stuck again, but IV access is needed to give IV medication.
[2022-09-05] MEDS: LIDOCAINE HCL 1% LOCAL INJ 2 ML AMPUL 5 ML INFILTRATE (17:00)
[2022-09-06] VITALS (10 sets, daily range): BP systolic 118–133; BP diastolic 59–71; PULSE 56–88; RESP 16–20; TEMP 36.4–36.7; O2SAT 94–98
[2022-09-06 06:40] LABS: Albumin Level 2.3 g/dL (3.5-5.1); Anion Gap 4 mmol/L (8-16); Blood Urea Nitrogen 57 mg/dL (9-20); Calcium 7.2 mg/dL (8.4-10.2); Carbon Dioxide 27 mmol/L (22-30); Chloride 104 mmol/L (98-107); Estimated CRCL calculation 32 ml/min; Estimated Glomerular Filt Rate 38; Glucose 106 mg/dL (65-110); Phosphorus 3.9 mg/dL (2.5-4.5); Potassium 3.6 mmol/L (3.4-5.0); Sodium 135 mmol/L (137-145)
--- NOTE | 2022-09-06 07:36 | PC.NURSE ---
Spoke with admissions at [facility] and they will be faxing over medical records and previous labs to [facility] sometime today.
[2022-09-06] MEDS: THERAPEUTIC MULTIVITAMINS/MINERALS TAB (*BKC) 1 TABLET PO (08:30)
[2022-09-06] MEDS: TAMSULOSIN HCL 0.4 MG CAPSULE PO (08:30)
[2022-09-06] MEDS: SODIUM BICARBONATE TAB 650 MG TABLET PO ×2 (08:30→16:50)
[2022-09-06] MEDS: METOPROLOL SUCCINATE EXT REL 25 MG TABCR PO (08:30)
[2022-09-06] MEDS: POTASSIUM CHLORIDE 20 MEQ PACKET (FOR LIQUID) 40 MEQ PO (08:30)
[2022-09-06] MEDS: FERROUS SULFATE 324 MG TABLET PO (08:30)
[2022-09-06] MEDS: FOLIC ACID 0.4 MG TABLET PO (08:30)
[2022-09-06] MEDS: ASCORBIC ACID 500 MG TABLET PO ×2 (08:30→16:50)
[2022-09-06] MEDS: ROSUVASTATIN 10 MG TABLET 40 MG PO (08:30)
[2022-09-06] MEDS: COLLAGENASE OINT 30 GM TUBE 1 APPLIC TOPICAL (08:34)
[2022-09-06] MEDS: FUROSEMIDE INJ 40 MG/4 ML VIAL IV PUSH (08:35)
[2022-09-06] MEDS: SILVER SULFADIAZINE 1% CR 400 GM JAR (*BKC) 1 APPLIC TOPICAL (08:35)
--- NOTE | 2022-09-06 16:27 | PM.IMPN ---
Progress Note: A&P Assessment and Plan (1) Pneumonia: Code(s): J18.9 - Pneumonia, unspecified organism Status: Acute Assessment and Plan: LLL and lingula pneumonia noted on chest x-ray. +cough and WBC 17.4 on admission. He was treated with Vancomycin, Azithromycin & Cefepime IV on admission. Continue Azithromycin and Cefepime. Will stop Vancomycin as MRSA pneumonia risk appears low. Monitor respiratory status. Trend CBC and procalcitonin 09/06/22 change to levaquin 750 mg PO Q48 hours to complete total 7-day course antibiotics. (2) Acute upper GI bleed: Code(s): K92.2 - Gastrointestinal hemorrhage, unspecified Status: Ruled-out Assessment and Plan: Hgb 10 and stable. Continue iron supplement and vitamin C EGD negative for bleeding or esophageal varices. Resume home apixaban and aspirin (3) Cirrhosis of liver: Qualifiers: Ascites presence: without ascites Hepatic cirrhosis type: alcoholic cirrhosis Qualified Code(s): K70.30 - Alcoholic cirrhosis of liver without ascites Code(s): K74.60 - Unspecified cirrhosis of liver Status: Acute Assessment and Plan: +lymphedema BLE to abdomen. BP soft. stopped IV fluids. Hold lasix for now. BUN/creatinine elevated and unknown baseline. BP 102/45 Albumin 1.6. give 25% albumin 50 grams x1 09/06/22 and albumin 2.3 today Resume lasix if BP is improved. It does not appear the patient is on spironolactone at this time, however, he might benefit from this. (4) History of stroke: Code(s): Z86.73 - Personal history of transient ischemic attack (TIA), and cerebral infarction without residual deficits Status: Chronic Assessment and Plan: with h/o right sided weakness and expressive aphasia. Monitor BP. continued on statin. Holding aspirin for above. (5) CHF (congestive heart failure): Qualifiers: Heart failure type: combined systolic and diastolic Heart failure chronicity: chronic Qualified Code(s): I50.42 - Chronic combined systolic (congestive) and diastolic (congestive) heart failure Code(s): I50.9 - Heart failure, unspecified Status: Chronic Assessment and Plan: Does not appear to be in acute exacerbation. Combined systolic and diastolic CHF per history. Resume lasix in am if BP tolerates. (6) Chronic kidney disease: Code(s): N18.9 - Chronic kidney disease, unspecified Status: Chronic Assessment and Plan: Chronic, presumed stage 3b from hypertension, CHF and liver cirrhosis. BUN 57, creatinine 2.2, eGFR 38. [facility]22 shows creatinine 2.3, so likely chronic. Given lasix 40 mg IV and repeat BMP at 1400. Plan CODE STATUS: FULL CODE Discharge disposition: PT/OT consulted. Awaiting discharge dispo arrangements. Time Spent With Patient Time: 30 min time spent reviewing chart, imaging, labs, patient assessment, monitoring response to treatment plan and educating patient on plan of care. Subjective Date/time seen: 09/06/22 16:27 Interval history: Patient is a 57-year-old male with hepatic cirrhosis, chronic combined congestive heart failure, hypertension, paroxysmal atrial fibrillation on Eliquis, prior strokes right hemiplegia and aphasia, who was brought to the emergency room for evaluation of hematemesis.?Chest xray suggests LLL and lingula pneumonia. He was admitted for GI evaluation and IV antibiotics. No new complaints. He is still edematous to extremities and trunk. He denies paresthesia. No hemoptysis, chest pain or SOB. Exam Narrative: General: No acute distress.? chronically ill appearing older adult male. Sitting at the side of the bed. Mental Status/Psych: Alert. Orientation at baseline. Expressive aphasia present. clear speech. Neutral mood and affect. Pleasant and cooperative. right-sided weakness. Skin: warm, dry and intact without rashes or lesions. No open wounds. Good turg
[2022-09-06 18:34] LABS: Anion Gap 2 mmol/L (8-16); Blood Urea Nitrogen 57 mg/dL (9-20); Calcium 7.4 mg/dL (8.4-10.2); Carbon Dioxide 29 mmol/L (22-30); Chloride 100 mmol/L (98-107); Estimated CRCL calculation 33 ml/min; Estimated Glomerular Filt Rate 40; Glucose 129 mg/dL (65-110); Potassium 3.7 mmol/L (3.4-5.0); Sodium 131 mmol/L (137-145)
[2022-09-07] VITALS: BP 130/70; PULSE 68; PULSE 74; RESP 18; TEMP 36.6; O2SAT 97
[2022-09-07 04:00] VITALS: BP 135/72; PULSE 62; PULSE 74; RESP 18; TEMP 36.6; O2SAT 98
--- NOTE | 2022-09-07 07:45 | PC.NURSE ---
Patient is refusing to wear conveyor monitor. Discussed the reason for the conveyor monitor and patient is aware of risks and benefits of conveyor monitor.
--- NOTE | 2022-09-07 09:14 | PM.DS ---
DS: Admitting Diagnosis Discharge Date 09/07/2022 0914 Admitting Diagnosis Pneumonia Acute upper GI bleed Cirrhosis of liver, chronic? DS: Discharge Diagnosis Discharge Diagnosis (1) Pneumonia: Code(s): J18.9 - Pneumonia, unspecified organism Status: Acute (2) Cirrhosis of liver: Qualifiers: Ascites presence: with ascites Hepatic cirrhosis type: alcoholic cirrhosis Qualified Code(s): K70.31 - Alcoholic cirrhosis of liver with ascites Code(s): K74.60 - Unspecified cirrhosis of liver Status: Acute (3) CHF (congestive heart failure): Qualifiers: Heart failure chronicity: chronic Heart failure type: combined systolic and diastolic Qualified Code(s): I50.42 - Chronic combined systolic (congestive) and diastolic (congestive) heart failure Code(s): I50.9 - Heart failure, unspecified Status: Chronic (4) Chronic kidney disease: Code(s): N18.9 - Chronic kidney disease, unspecified Status: Chronic (5) Acute upper GI bleed: Code(s): K92.2 - Gastrointestinal hemorrhage, unspecified Status: Ruled-out (6) History of stroke: Code(s): Z86.73 - Personal history of transient ischemic attack (TIA), and cerebral infarction without residual deficits Status: Chronic DS: Summary Hospital Course Reason for hospitalization: Vomiting blood Hospital Course: Juan Carlos Arreaga is a 57-year-old male with hepatic cirrhosis, chronic combined congestive heart failure, hypertension, paroxysmal atrial fibrillation on Eliquis, prior strokes right hemiplegia and aphasia, who was brought to the emergency room for evaluation of vomiting blood.?Chest xray suggested LLL and lingula pneumonia. He was admitted for GI evaluation and IV antibiotics. (1) Pneumonia, bacterial LLL and lingula pneumonia noted on chest x-ray. +cough and WBC 17.4 on admission. He was treated with Vancomycin, Azithromycin & Cefepime IV on admission. Treated with Azithromycin and Cefepime IV. Stopped Vancomycin as MRSA pneumonia risk appears low. Most likely vomiting blood is hemoptysis related to acute bacterial pneumonia, which resolved with antibiotics. 09/06/22 changed to levaquin 750 mg PO Q48 hours to complete total 7-day course antibiotics. (2) Acute upper GI bleed, ruled out Hgb 10 and stable. Continued on iron supplement and vitamin C. GI consulted and EGD negative for bleeding or esophageal varices. Resumed home apixaban. (3) Cirrhosis of liver, chronic +lymphedema BLE to abdomen. BP soft. IV fluids started on admission, but stopped hospital day 1 due to edema. Lasix held initially due to soft BP and episode of hypotension SBP 80s after dose given. Albumin 1.6. give 25% albumin 50 grams x1 09/06/22 and albumin 2.3 recheck. Resumed lasix once BP improved. Started on low dose spironolactone as K <5. (4) History of stroke with h/o right sided weakness and expressive aphasia. Monitored BP. continued on statin. Stopped aspirin due to liver cirrhosis (5) CHF (congestive heart failure), chronic Does not appear to be in acute exacerbation. Combined systolic and diastolic CHF per history. Conrinued lasix in am if BP tolerates. (6) Chronic kidney disease: Chronic, presumed stage 3b from hypertension, CHF and liver cirrhosis. Renal function trending up during hospital stay and no previously known baseline. BUN 57, creatinine 2.2, eGFR 38. Prior shelter records were obtained from 08/27/22 that showed creatinine 2.3, so likely chronic. Given lasix 40 mg IV and repeat BUN 57, creatinine 2.1, eGFR 40. Stable. Patient's hemoptysis resolved on antibiotic therapy. PE was thought to be unlikely given he was on Eliquis, not hypoxic or tachycardic. Additionally CTA chest could not be obtained due to renal dysfunction. His renal function did improve by discharge and appeared at baseline. The patient's family did not want him to return to SNF as he was already scheduled to be discharged on 09/07/22. He w
[2022-09-07 10:15] VITALS: BP 126/66; PULSE 71
[2022-09-07] MEDS: FOLIC ACID 0.4 MG TABLET PO (10:21)
[2022-09-07] MEDS: FUROSEMIDE 40 MG TABLET PO (10:21)
[2022-09-07] MEDS: ROSUVASTATIN 10 MG TABLET 40 MG PO (10:21)
[2022-09-07] MEDS: APIXABAN 5 MG TABLET PO (10:21)
[2022-09-07] MEDS: SODIUM BICARBONATE TAB 650 MG TABLET PO (10:21)
[2022-09-07] MEDS: ASCORBIC ACID 500 MG TABLET PO (10:21)
[2022-09-07] MEDS: THERAPEUTIC MULTIVITAMINS/MINERALS TAB (*BKC) 1 TABLET PO (10:21)
[2022-09-07] MEDS: FERROUS SULFATE 324 MG TABLET PO (10:21)
[2022-09-07] MEDS: levoFLOXacin 750 MG TABLET PO (10:21)
[2022-09-07] MEDS: SPIRONOLACTONE 12.5 MG TABLET PO (10:22)
[2022-09-07] MEDS: TAMSULOSIN HCL 0.4 MG CAPSULE PO (10:22)
[2022-09-07 10:24] VITALS: PULSE 71
[2022-09-07] MEDS: METOPROLOL SUCCINATE EXT REL 25 MG TABCR PO (10:24)
--- NOTE | 2022-09-07 11:02 | PC.NURSE ---
Spoke with Mayi. Updated her. Transferred her to care coordination as she has questions that need answered that movie writer cannot answer.
== END 2022-09-07 14:20 | disposition home health service (06) | DRG 194 ==
LOC: ANHED 19:13 → ANHIMU 22:12 → ANH3MED 09-04 22:35
PROVIDERS: Internal Medicine Gastroenterology; Admitting Provider Internal Medicine; Emergency Provider Family Medicine; Visit Provider Nurse Practitioner Family
PROC: 0DJ08ZZ Inspection of Upper Intestinal Tract, Via Natural or Artificial Opening Endoscopic (ICD-10-PCS; CPT 43235; principal; 2022-09-04 08:00)
DX: J15.9 Unspecified bacterial pneumonia (principal); I13.0 Hypertensive heart and chronic kidney disease with heart failure and stage 1 through stage 4 chronic kidney disease, or unspecified chronic kidney disease; K92.0 Hematemesis; R04.2 Hemoptysis; I50.42 Chronic combined systolic (congestive) and diastolic (congestive) heart failure; I69.351 Hemiplegia and hemiparesis following cerebral infarction affecting right dominant side; K70.31 Alcoholic cirrhosis of liver with ascites; N18.32 Chronic kidney disease, stage 3b; Z20.822 Contact with and (suspected) exposure to COVID-19; I48.0 Paroxysmal atrial fibrillation; Z79.01 Long term (current) use of anticoagulants; I69.320 Aphasia following cerebral infarction; Z95.0 Presence of cardiac pacemaker
CPT/HCPCS: 36415; 36569; 74177; 80048; 80053; 80069; 81003; 82948; 83605; 83690; 83735; 84145; 84484; 85014; 85018; 85025; 85610; 87040; 87636; 93005; 96361; 96365; 96366; 96367; 96375; 97110; 97161; 97166; 97530; 99285; A9270; C1751; G0378; J0456; J0692; J1940; J2704; J3370; J7030; J7120; P9047; Q9967